=== PATIENT | male | born 1955 | race Caucasian/White ===

== ENCOUNTER 2016-09-20 08:57 | Day surgery (SDC) | payer OTHER ==
[~2016-09-20] VITALS: Ht 170.2 cm; Wt 104.5 kg
[~2016-09-20 08:57] MED LIST: ASPI1TAB69 PO; BLOO1KIT65; IBUP800T23 PO; LOSA25TA PO; METF1000 PO; PIOG30TA4 PO; PROS5TAB PO; TAMS0.4C4 PO; ZOFR4TAB PO; [UNRECOGNIZED DRUG - CODE] PO
[2016-09-20 09:18] VITALS: BP 158/85; PULSE 62; RESP 20; TEMP 98.5; O2SAT 98
[2016-09-20] MEDS ORDERED: fentaNYL CITRATE 250 MCG/5 ML AMP ONE (09:43)
[2016-09-20] MEDS ORDERED: MIDAZOLAM HCL 5 MG/5 ML VIAL ONE (09:43)
[2016-09-20 09:44] LABS: BASOPHIL # 0.1 TH/MM3 (0-0.2); BASOPHIL % 0.7 % (0.0-2.0); EOSINOPHIL # 0.1 TH/MM3 (0-0.4); HEMATOCRIT 42.2 % (39.0-51.0); HEMO FLAGS DIFF FINAL; LYMPH % 22.7 % (9.0-44.0); MEAN CELL VOLUME 85.1 FL (80.0-100.0); MEAN CORPUSCULAR HEMOGLOBIN 29.1 PG (27.0-34.0); MEAN CORPUSCULAR HGB CONC 34.1 % (32.0-36.0); MONO % 8.6 % (0.0-8.0); PLATELET COUNT 198 TH/MM3 (150-450); RED BLOOD COUNT 4.96 MIL/MM3 (4.50-5.90); RED CELL DISTRIBUTION WIDTH 14.7 % (11.6-17.2); WHITE BLOOD COUNT 8.9 TH/MM3 (4.0-11.0)
[2016-09-20] MEDS ORDERED: SODIUM CHLOR 0.9% 1000 ML IV SCH (09:45)
[2016-09-20] MEDS ORDERED: LIDOCAINE 1%/EPINEPHrine 1:100,000 SOLN 20 ML VIAL ONE (10:28)
[2016-09-20 11:30] VITALS: BP 116/61; PULSE 66; RESP 18; TEMP 97.8; O2SAT 95
--- NOTE | 2016-09-20 11:38 | RADRPT ---
EXAM DATE/TIME: 09/20/2016 10:52 [place] COMPARISON: No previous studies available for comparison. INDICATIONS : Suspected Non Hodgkins lymphoma SEDATION TIME: 30 minutes BIOPSY SITE: Left ilium MEDICATION(S): 1.) 5 mg midazolam (Versed) IV 2.) 200 mcg fentanyl (Sublimaze) IV DEVICE(S): 1.) 12 gauge On-Control needle MEDICAL HISTORY : Diabetes mellitus type 2. Hypertension. Gastroesophageal reflux disease. SURGICAL HISTORY : Appendectomy. Prostatectomy. ENCOUNTER: Initial ACUITY: 1 day PAIN SCORE: 0/10 LOCATION: flank A total of one core specimen(s) were obtained and sent to the laboratory for pathologic evaluation. PROCEDURE: 1. CT guided bone marrow biopsy. 2. Conscious sedation with continuous EKG and oximetry monitoring. 3. EKG and oximetry remained stable throughout the procedure. Prior to the procedure informed consent was obtained. Any appropriate prior imaging studies were rev iewed. The site was prepped in a sterile fashion. Full sterile technique was used, including cap, mask, imani rile gloves and gown and a large sterile sheet. Hand hygiene and 2% chlorhexidine and/or betadine/al cohol prep was utilized per protocol for cutaneous antisepsis. The skin and subcutaneous tissues wer e infiltrated with local anesthetic solution. With CT guidance the previously identified target was localized. Biopsy was performed using the presc ribed needle as above. Following biopsy marrow aspiration was performed with repeat puncture. Adequa te hemostasis was obtained with compression at the puncture site. Follow-up CT scan reveals no hemorrhage. Conscious sedation was performed with the prescribed dosages and duration as above. The patient jackie ated the procedure well and there were no complications. EKG and oximetry remained stable throughout the procedure. The patient was sent to Radiology Outpatient Unit in stable condition. CONCLUSION: 1. Uncomplicated CT guided bone marrow aspirate. 2. Uncomplicated CT guided bone marrow biopsy. Minh Arevalo MD on September 20, 2016 at 11:36 Board Certified Radiologist. This report was verified electronically.
[2016-09-20 11:45] VITALS: BP 118/70; PULSE 66; RESP 18; O2SAT 96
[2016-09-20 12:01] LABS: BONE MARROW PROCESSING COMPLETE; IRON STAIN DONE; JENNER GIEMSA STAIN DONE
[2016-09-20 12:15] VITALS: BP 115/63; PULSE 60; RESP 18; O2SAT 94
[2016-09-20 12:45] VITALS: BP 164/82; PULSE 60; RESP 18; O2SAT 96
[2016-09-20] MEDS ORDERED: ACETAMINOPHEN 500 MG CPLT PO ONE (13:00)
[2016-09-20] MEDS ORDERED: oxyCODONE/ACETAMINOPHEN 5 MG/325 MG TAB PO PRN (13:00)
[2016-09-20 13:15] VITALS: BP 147/81; PULSE 70; RESP 18; O2SAT 97
== END 2016-09-20 13:30 | disposition home or self-care (01) ==
LOC: HRAD 08:57 → HRIP 08:58 → EDSTATUS 09:00 → HRAD 13:30
PROVIDERS: ATTEND Internal Medicine
DX: C80.1 Malignant (primary) neoplasm, unspecified (principal); C79.51 Secondary malignant neoplasm of bone; E11.9 Type 2 diabetes mellitus without complications; I10 Essential (primary) hypertension; K21.9 Gastro-esophageal reflux disease without esophagitis
CPT/HCPCS: 38221; 77012; 85025; 85097; 88305; 88311; 88313; 99152; C1830; G0364; J2250; J3010; J7030